=== PATIENT | female | born 1955 | race African-American/Black ===

== ENCOUNTER 2017-07-24 07:25 | Emergency (ER) | payer OTHER ==
[~2017-07-24] VITALS: Ht 162.6 cm; Wt 77.1 kg
[2017-07-24] MEDS ORDERED: IV NORMAL SALINE 1000ML BAG 1,000 ML IV SCH (07:50)
--- NOTE | 2017-07-24 07:56 | PHYS DOC ---
Past Medical History Past Medical History: Hypertension Past Surgical History: , Tonsillectomy, Other Additional Past Surgical Histo: Eye surgery Alcohol Use: None Drug Use: None Adult General Chief Complaint Chief Complaint: DIZZY/LIGHT HEADED HPI HPI Patient is a 62 year old female who presents with 3 days of dizziness. Patient states that she has been having worsening symptoms with standing and with turning her head. Patient states that her symptoms improved when lying still. Patient states that she had similar symptoms last year and was treated for vertigo. Patient also received a brain MRI last year that diagnosed with an incidental finding of brain aneurysm. Patient states that she was treated at for her aneurysm. She states that her doctors did not feel this was associated with her vertigo symptoms. Patient denied rupture of the aneurysm. Patient has had associated nausea but denies headache, shortness of breath, chest pain. Patient has not taken any medications for her symptoms. Review of Systems Review of Systems Constitutional: Denies fever or chills [] Eyes: Denies change in visual acuity, redness, or eye pain [] HENT: Denies nasal congestion or sore throat [] Respiratory: Denies cough or shortness of breath [] Cardiovascular: Denies chest pain or edema[] GI: Nausea, denies abdominal pain, vomiting, bloody stools or diarrhea [] : Denies dysuria or hematuria [] Musculoskeletal: Denies back pain or joint pain [] Integument: Denies rash or skin lesions [] Neurologic: Dizziness, denies headache, focal weakness or sensory changes [] Current Medications Current Medications Current Medications Medications (Trade) Dose Ordered Sig/Emilee Start Time Stop Time Status Last Admin Dose Admin Diazepam (Valium) 5 mg 1X ONCE 07/24/17 08:00 07/24/17 08:02 DC 07/24/17 08:16 5 MG Sodium Chloride 1,000 ml @ 1,000 mls/hr Q1H 07/24/17 07:50 07/24/17 08:49 DC 07/24/17 08:17 1,000 MLS/HR Allergies Allergies Allergies Uncoded Allergies Type Severity Reaction Last Updated Verified ASPERTANE Allergy Intermediate SWELLS UP 12/27/15 Physical Exam Physical Exam Constitutional: Alert, afebrile, appears in mild discomfort. [] HENT: Normocephalic, atraumatic, bilateral external ears normal, oropharynx moist, no oral exudates, nose normal. [] Eyes: PERRLA, EOMI, conjunctiva normal, no discharge. [] Neck: Normal range of motion, no tenderness, supple, no stridor. [] Cardiovascular:Heart rate regular rhythm, no murmur [] Lungs & Thorax: Bilateral breath sounds clear to auscultation [] Abdomen: Bowel sounds normal, soft, no tenderness, no masses, no pulsatile masses. [] Skin: Warm, dry, no erythema, no rash. [] Back: No tenderness, no CVA tenderness. [] Extremities: No tenderness, no cyanosis, no clubbing, ROM intact, no edema. [] Neurologic: Alert and oriented X 3, normal motor function, normal sensory function, no focal deficits noted. [] Current Patient Data Vital Signs Vital Signs Date Time Temp Pulse Resp B/P (MAP) Pulse Ox O2 Delivery O2 Flow Rate FiO2 07/24/17 07:44 98.1 93 14 167/74 (105) 96 Room Air 98.1 Lab Values Laboratory Tests Test 07/24/17 07:41 White Blood Count 4.6 x10^3/uL (4.0-11.0) Red Blood Count 4.96 x10^6/uL (3.50-5.40) Hemoglobin 14.4 g/dL (12.0-15.5) Hematocrit 43.3 % (36.0-47.0) Mean Corpuscular Volume 87 fL (79-100) Mean Corpuscular Hemoglobin 29 pg (25-35) Mean Corpuscular Hemoglobin Concent 33 g/dL (31-37) Red Cell Distribution Width 13.2 % (11.5-14.5) Platelet Count 247 x10^3/uL (140-400) Neutrophils (%) (Auto) 49 % (31-73) Lymphocytes (%) (Auto) 42 % (24-48) Monocytes (%) (Auto) 7 % (0-9) Eosinophils (%) (Auto) 1 % (0-3) Basophils (%) (Auto) 1 % (0-3) Neutrophils # (Auto) 2.3 x10^3uL (1.8-7.7) Lymphocytes # (Auto) 2.0 x10^3/uL (1.0-4.8) Monocytes # (Auto) 0.3 x10^3/uL (0.0-1.1) Eosinophils # (Auto) 0.0 x10^3/uL (0.0-0.7) Basophils # (Auto) 0.0 x10^3/uL (0.0-0.2) Sodium Level 143 mmol/L (136-145) Potassium Level 3.8 mmol/L (3.5-5.1) Chloride Level 105 mmol/L (98-107) Carbon Dioxide Level 30 mmol/L (21-32) Anion Gap 8 (6-14) Blood Urea Nitrogen 17 mg/dL (7-20) Creatinine 0.8 mg/dL (0.6-1.0) Estimated GFR (Cockcroft-Gault) 88.2 BUN/Creatinine Ratio 21 (6-20) H Glucose Level 95 mg/dL (70-99) Calcium Level 9.3 mg/dL (8.5-10.1) Magnesium Level 1.9 mg/dL (1.8-2.4) Total Bilirubin 0.4 mg/dL (0.2-1.0) Aspartate Amino Transferase (AST) 20 U/L (15-37) Alanine Aminotransferase (ALT) 21 U/L (14-59) Alkaline Phosphatase 80 U/L (46-116) Total Protein 7.6 g/dL (6.4-8.2) Albumin 3.7 g/dL (3.4-5.0) Albumin/Globulin Ratio 0.9 (1.0-1.7) L Laboratory Tests 07/24/17 07:41 Laboratory Tests 07/24/17 07:41 EKG EKG Interpreted by me: Heart 72, sinus rhythm, normal intervals, normal axis, no acute ST/T-wave abnormalities present[] Radiology/Procedures Radiology/Procedures [facility] [address] [place] [address] IMAGING REPORT Signed PATIENT: JUAN JADE ACCOUNT: [id number] : 1955 LOCATION: ER AGE: 62 SEX: F EXAM STATUS: PRE ER ORD. PHYSICIAN: MADI GOMEZ MD REASON: dizziness, reported history of brain aneurysm PROCEDURE: CT HEAD WO CONTRAST CT scan of the head without contrast 07/24/2017 Clinical History: Dizziness. Technique: Unenhanced, contiguous, 5 mm axial sections were obtained through the head. One or more of the following individualized dose reduction techniques were utilized for this study: 1. Automated exposure control. 2. Adjustment of the mA and/or kV according to patient size. 3. Use of iterative reconstruction technique. Findings: Comparison study is dated 12/27/2015. There is generalized parenchymal atrophy. Small scattered areas of decreased attenuation are seen within the periventricular and subcortical white matter of both cerebral hemispheres consistent with areas of mild small vessel ischemic disease. No acute parenchymal abnormality is seen. No extra-axial fluid collection is noted. No skull fracture is seen. Impression: No acute intracranial abnormality is seen. DICTATED and SIGNED BY: ALEX ZAPATA MD DATE: 07/24/17813 CC: MADI GOMEZ MD; RO PERRY MD ~ [] Course & Med Decision Making Course & Med Decision Making Pertinent Labs and Imaging studies reviewed. (See chart for details) Patient was given IV fluids and IV Valium in the emergency department. On reevaluation, symptoms have improved. Patient prescribed meclizine for continued treatment of symptoms as outpatient. Recommended follow-up in 2-3 days a primary doctor for reevaluation and return to emergency department for any worsening symptoms. Patient voiced understanding and in agreement with treatment plan. Dragon Disclaimer Dragon Disclaimer This electronic medical record was generated, in whole or in part, using a voice recognition dictation system. Departure Departure Impression: Primary Impression: Vertigo Disposition: 01 HOME, SELF-CARE Condition: IMPROVED Referrals: RO PERRY MD (PCP) Patient Instructions: Vertigo Additional Instructions: Follow-up to primary doctor in 2-3 days for reevaluation. Return to the emergency department for any worsening symptoms. Scripts Meclizine Hcl (MECLIZINE HCL) 25 Mg Tablet 1 TAB PO TID Y for DIZZINESS, #30 TAB Prov: MADI GOMEZ MD 07/24/17 MADI GOMEZ MD Jul 24, 2017 07:56
[2017-07-24 08:11] LABS: BASO % 1 % (0-3); EOS % 1 % (0-3); HEMATOCRIT 43.3 % (36.0-47.0); HEMOGLOBIN 14.4 g/dL (12.0-15.5); LYMPH % 42 % (24-48); MEAN CORPUSCULAR HEMOGLOBIN 29 pg (25-35); MEAN CORPUSCULAR HGB CONC 33 g/dL (31-37); MEAN CORPUSCULAR VOLUME 87 fL (79-100); MONO % 7 % (0-9); NEUT % 49 % (31-73); PLATELET COUNT 247 x10^3/uL (140-400); RED BLOOD COUNT 4.96 x10^6/uL (3.50-5.40); RED CELL DISTRIBUTION WIDTH 13.2 % (11.5-14.5); WHITE BLOOD COUNT 4.6 x10^3/uL (4.0-11.0)
[2017-07-24 08:14] LABS: CALCIUM 9.3 mg/dL (8.5-10.1); CREATININE 0.8 mg/dL (0.6-1.0); GFR 88.2; POTASSIUM 3.8 mmol/L (3.5-5.1)
[2017-07-24 08:20] LABS: ALBUMIN 3.7 g/dL (3.4-5.0); ALBUMIN/GLOBULIN RATIO 0.9 (1.0-1.7); MAGNESIUM 1.9 mg/dL (1.8-2.4); TOTAL BILIRUBIN 0.4 mg/dL (0.2-1.0); TOTAL PROTEIN 7.6 g/dL (6.4-8.2)
--- NOTE | 2017-07-24 08:22 | RAD ---
CT scan of the head without contrast 07/24/2017 Clinical History: Dizziness. Technique: Unenhanced, contiguous, 5 mm axial sections were obtained through the head. One or more of the following individualized dose reduction techniques were utilized for this study: 1. Automated exposure control. 2. Adjustment of the mA and/or kV according to patient size. 3. Use of iterative reconstruction technique. Findings: Comparison study is dated 12/27/2015. There is generalized parenchymal atrophy. Small scattered areas of decreased attenuation are seen within the periventricular and subcortical white matter of both cerebral hemispheres consistent with areas of mild small vessel ischemic disease. No acute parenchymal abnormality is seen. No extra-axial fluid collection is noted. No skull fracture is seen. Impression: No acute intracranial abnormality is seen.
[2017-07-24] MEDS ORDERED: MECL25TA3 PO (08:43)
[2017-07-24 09:13] LABS: BILIRUBIN,URINE NEGATIVE (NEG); GLUCOSE,URINE NEGATIVE (NEG); NITRITE,URINE NEGATIVE (NEG); PROTEIN,URINE NEGATIVE (NEG-TRACE); UROBILINOGEN,URINE 0.2 mg/dL (0.2 mg/dL)
[2017-07-24 09:29] LABS: BACTERIA,URINE FEW /HPF (0-FEW); SQUAMOUS EPITHELIAL CELL,UR FEW /LPF
[2017-07-24 09:30] VITALS: BP 148/74
--- NOTE | 2017-07-24 12:53 | EKG ---
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
== END 2017-07-24 09:58 | disposition home or self-care (01) ==
LOC: ER 07:25
DX: R42 Dizziness and giddiness (principal); R11.0 Nausea; I10 Essential (primary) hypertension; Z88.8 Allergy status to other drugs, medicaments and biological substances
CPT/HCPCS: 36415; 70450; 80053; 81001; 83735; 85025; 87086; 93005; 96361; 96374; 99285; J3360; J7030

== ENCOUNTER 2019-08-29 18:33 | Emergency (ER) | payer OTHER ==
[~2019-08-29] VITALS: Ht 162.6 cm; Wt 78.0 kg
[~2019-08-29 18:33] MED LIST: MECL25TA3 PO
[2019-08-29] MEDS ORDERED: ASPIRIN CHEWABLE 81 MG TABLET. PO ONE (19:00)
[2019-08-29 19:52] LABS: BASO % 1 % (0-3); EOS # 0.1 x10^3/uL (0.0-0.7); EOS % 1 % (0-3); HEMATOCRIT 42.1 % (36.0-47.0); HEMOGLOBIN 14.1 g/dL (12.0-15.5); LYMPH # 1.7 x10^3/uL (1.0-4.8); LYMPH % 22 % (24-48); MEAN CORPUSCULAR HEMOGLOBIN 29 pg (25-35); MEAN CORPUSCULAR HGB CONC 34 g/dL (31-37); MEAN CORPUSCULAR VOLUME 87 fL (79-100); MONO # 0.4 x10^3/uL (0.0-1.1); MONO % 5 % (0-9); NEUT # 5.5 x10^3/uL (1.8-7.7); NEUT % 71 % (31-73); PLATELET COUNT 262 x10^3/uL (140-400); RED BLOOD COUNT 4.86 x10^6/uL (3.50-5.40); RED CELL DISTRIBUTION WIDTH 12.8 % (11.5-14.5); WHITE BLOOD COUNT 7.8 x10^3/uL (4.0-11.0)
[2019-08-29 20:00] LABS: CREATININE 0.7 mg/dL (0.6-1.0); GFR 102.3; POTASSIUM 3.7 mmol/L (3.5-5.1)
[2019-08-29 20:01] LABS: PROTHROMBIN TIME PATIENT 12.2 SEC (11.7-14.0)
[2019-08-29 20:06] LABS: ALBUMIN 3.7 g/dL (3.4-5.0); ALBUMIN/GLOBULIN RATIO 0.9 (1.0-1.7); TOTAL BILIRUBIN 0.3 mg/dL (0.2-1.0); TOTAL PROTEIN 7.7 g/dL (6.4-8.2)
--- NOTE | 2019-08-29 20:15 | PHYS DOC ---
Past Medical History Past Medical History: Hypertension Past Surgical History: , Tonsillectomy, Other Additional Past Surgical Histo: Eye surgery Alcohol Use: None Drug Use: None Adult General Chief Complaint Chief Complaint: CHEST PAIN HPI HPI Patient is a 64 year old female presents to the due to chief complaint of chest pain. Patient states that the pain started around 4 PM today. Patient describes the pain in her epigastric region and states that it feels like heartburn. Patient states that she's never had a cardiac workup previously. Patient denies radiation of her chest pain. Patient does say that she has nausea but no vomiting and no shortness of breath and now sweating. Review of Systems Review of Systems Constitutional: Denies fever or chills [] Eyes: Denies change in visual acuity, redness, or eye pain [] HENT: Denies nasal congestion or sore throat [] Respiratory: Denies cough or shortness of breath [] Cardiovascular: Complains of chest pain[] GI: Denies abdominal pain, nausea, vomiting, bloody stools or diarrhea [] : Denies dysuria or hematuria [] Musculoskeletal: Denies back pain or joint pain [] Integument: Denies rash or skin lesions [] Neurologic: Denies headache, focal weakness or sensory changes [] All other systems were reviewed and found to be within normal limits, except as documented in this note. Current Medications Current Medications Current Medications Medications (Trade) Dose Ordered Sig/[facility] Start Time Stop Time Status Last Admin Dose Admin Aspirin (Children'S Aspirin) 324 mg 1X ONCE 08/29/19 19:00 08/29/19 19:01 DC 08/29/19 19:44 324 MG Multi-Ingredient Mouthwash/Gargle (Gi Cocktail) 20 ml 1X ONCE 08/29/19 20:30 08/29/19 20:31 DC 08/29/19 20:30 20 ML Allergies Allergies Allergies Coded Allergies Type Severity Reaction Last Updated Verified aspartame Allergy Intermediate SWELLS UP 08/29/19 Yes Physical Exam Physical Exam Constitutional: Well developed, well nourished, no acute distress, non-toxic appearance. [] HENT: Normocephalic, atraumatic [] Neck: Normal range of motion, no tenderness, supple, no stridor. [] Cardiovascular:Heart rate regular rhythm, no murmur [] Lungs & Thorax: Bilateral breath sounds clear to auscultation [] Abdomen: Bowel sounds normal, soft, no tenderness [] Back: No tenderness, no CVA tenderness. [] Extremities: No tenderness, no cyanosis, no clubbing, ROM intact[] Neurologic: Alert and oriented X 3, normal motor function, normal sensory function, no focal deficits noted. [] Current Patient Data Vital Signs Vital Signs Date Time Temp Pulse Resp B/P (MAP) Pulse Ox O2 Delivery O2 Flow Rate FiO2 08/29/19 21:15 80 16 149/77 (101) 96 Room Air 08/29/19 18:45 98.4 98.4 Lab Values Laboratory Tests Test 08/29/19 19:40 White Blood Count 7.8 x10^3/uL (4.0-11.0) Red Blood Count 4.86 x10^6/uL (3.50-5.40) Hemoglobin 14.1 g/dL (12.0-15.5) Hematocrit 42.1 % (36.0-47.0) Mean Corpuscular Volume 87 fL (79-100) Mean Corpuscular Hemoglobin 29 pg (25-35) Mean Corpuscular Hemoglobin Concent 34 g/dL (31-37) Red Cell Distribution Width 12.8 % (11.5-14.5) Platelet Count 262 x10^3/uL (140-400) Neutrophils (%) (Auto) 71 % (31-73) Lymphocytes (%) (Auto) 22 % (24-48) L Monocytes (%) (Auto) 5 % (0-9) Eosinophils (%) (Auto) 1 % (0-3) Basophils (%) (Auto) 1 % (0-3) Neutrophils # (Auto) 5.5 x10^3/uL (1.8-7.7) Lymphocytes # (Auto) 1.7 x10^3/uL (1.0-4.8) Monocytes # (Auto) 0.4 x10^3/uL (0.0-1.1) Eosinophils # (Auto) 0.1 x10^3/uL (0.0-0.7) Basophils # (Auto) 0.0 x10^3/uL (0.0-0.2) Prothrombin Time 12.2 SEC (11.7-14.0) Prothrombin Time INR 0.9 (0.8-1.1) Sodium Level 143 mmol/L (136-145) Potassium Level 3.7 mmol/L (3.5-5.1) Chloride Level 106 mmol/L (98-107) Carbon Dioxide Level 31 mmol/L (21-32) Anion Gap 6 (6-14) Blood Urea Nitrogen 15 mg/dL (7-20) Creatinine 0.7 mg/dL (0.6-1.0) Estimated GFR (Cockcroft-Gault) 102.3 BUN/Creatinine Ratio 21 (6-20) H Glucose Level 96 mg/dL (70-99) Calcium Level 9.0 mg/dL (8.5-10.1) Total Bilirubin 0.3 mg/dL (0.2-1.0) Aspartate Amino Transferase (AST) 19 U/L (15-37) Alanine Aminotransferase (ALT) 15 U/L (14-59) Alkaline Phosphatase 75 U/L (46-116) Troponin I Quantitative < 0.017 ng/mL (0.000-0.055) FF-Brs-Q-Type Natriuretic Peptide 39 pg/mL (0-124) Total Protein 7.7 g/dL (6.4-8.2) Albumin 3.7 g/dL (3.4-5.0) Albumin/Globulin Ratio 0.9 (1.0-1.7) L Lipase 108 U/L (73-393) Laboratory Tests 08/29/19 19:40 Laboratory Tests 08/29/19 19:40 EKG EKG EKG injury of dictation: HR: 90 Sinus rhythm Regular intervals Normal axis Nonspecific ST changes No STEMI Radiology/Procedures Radiology/Procedures Ordered chest x-ray Impressions: X-ray does not show any acute disease. Course & Med Decision Making Course & Med Decision Making Pertinent Labs and Imaging studies reviewed. (See chart for details) EKG does not show any acute disease. Troponin is within normal limits. Labs are within normal limits. Patient was given aspirin in the ED. Ordered GI cocktail. Patient states that she is feeling much better after the GI cocktail. Offered admission to patient for stress test the patient says that she will have a stress test as an outpatient. Patient wants to be discharged home. Discussed results and plan of care patient and family. Discussed results and plan of care with patient. Patient is instructed to follow up with PCP in one to 2 days. Appropriate discharge instructions given to patient to return to the ED or to seek immediate medical evaluation. Patient is instructed to return to the ED if symptoms worsen or if any concerns. Pamela Disclaimer Pamela Disclaimer This electronic medical record was generated, in whole or in part, using a voice recognition dictation system. Departure Departure Impression: Primary Impression: Chest pain Additional Impressions: GERD (gastroesophageal reflux disease) Gastritis Disposition: HOME, SELF-CARE Condition: IMPROVED Referrals: JUDY POSADA DO (PCP) Patient Instructions: Chest Pain (Nonspecific), Gastritis, Adult, Peptic Ulcer Disease Additional Instructions: Discussed results and plan of care with patient. Patient is instructed to follow up with PCP in one to 2 days. Appropriate discharge instructions given to patient to return to the ED or to seek immediate medical evaluation. Patient is instructed to return to the ED if symptoms worsen or if any concerns. Scripts Sucralfate (CARAFATE) 1 Gm Tablet 1 TAB PO BID for 30 Days, #60 TAB 0 Refills Prov: ANDRES ZARATE DO 08/29/19 Famotidine (PEPCID) 20 Mg Tablet 20 MG PO BID, #60 TAB Prov: ANDRES ZARATE DO 08/29/19 Problem Qualifiers ANDRES ZARATE DO Aug 29, 2019 20:15
[2019-08-29] MEDS ORDERED: LIDO:MAALOX 1:1 20 ML SINGLE DOSE. SWSW ONE (20:30)
--- NOTE | 2019-08-29 20:38 | RAD ---
EXAM: CHEST 2 VIEWS. HISTORY: Chest pain. COMPARISON: 12/27/2015. FINDINGS: Frontal and lateral views of the chest are obtained. There are no confluent infiltrates. There is no pneumothorax or pleural effusion. The heart is not enlarged. There are atherosclerotic calcifications of the aorta. IMPRESSION: 1. No confluent infiltrates. Electronically signed by: Chapin Krishnamurthy MD (08/29/2019 8:36 PM) [facility]
[2019-08-29 21:15] VITALS: BP 149/77
[2019-08-29] MEDS ORDERED: FAMO-63 PO (21:20)
[2019-08-29] MEDS ORDERED: SUCR1TAB35 PO (21:20)
--- NOTE | 2019-08-30 08:02 | EKG ---
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
== END 2019-08-29 21:30 | disposition home or self-care (01) ==
LOC: ER 18:33
DX: K21.9 Gastro-esophageal reflux disease without esophagitis (principal); K29.70 Gastritis, unspecified, without bleeding; R07.89 Other chest pain; I10 Essential (primary) hypertension; Z98.890 Other specified postprocedural states; Z88.8 Allergy status to other drugs, medicaments and biological substances
CPT/HCPCS: 36415; 71046; 80053; 83690; 83880; 84484; 85025; 85610; 93005; 99285-25

== ENCOUNTER 2019-10-19 11:35 | Emergency (ER) | payer OTHER ==
[~2019-10-19] VITALS: Ht 162.6 cm; Wt 77.1 kg
[~2019-10-19 11:35] MED LIST changes: +FAMO-63 PO; +SUCR1TAB35 PO
--- NOTE | 2019-10-19 12:52 | RAD ---
PORTABLE CHEST 1V Clinical indications: Generalized weakness. COMPARISON: August 02, 2019. Findings: No acute lung infiltrate or pleural effusion or pulmonary edema or lung mass or pneumothorax is seen. The heart size, pulmonary vasculature, mediastinum and both nidia are stable. Impression: No acute radiographic abnormality is seen. Electronically signed by: Jani Mcgee MD (10/19/2019 12:49 PM) [facility]
[2019-10-19 13:01] LABS: BASO % 1 % (0-3); EOS # 0.1 x10^3/uL (0.0-0.7); EOS % 2 % (0-3); HEMATOCRIT 39.4 % (36.0-47.0); HEMOGLOBIN 13.1 g/dL (12.0-15.5); LYMPH # 2.3 x10^3/uL (1.0-4.8); LYMPH % 39 % (24-48); MEAN CORPUSCULAR HEMOGLOBIN 29 pg (25-35); MEAN CORPUSCULAR HGB CONC 33 g/dL (31-37); MEAN CORPUSCULAR VOLUME 87 fL (79-100); MONO # 0.4 x10^3/uL (0.0-1.1); MONO % 7 % (0-9); NEUT # 3.1 x10^3/uL (1.8-7.7); NEUT % 52 % (31-73); PLATELET COUNT 268 x10^3/uL (140-400); RED BLOOD COUNT 4.52 x10^6/uL (3.50-5.40); RED CELL DISTRIBUTION WIDTH 12.9 % (11.5-14.5); WHITE BLOOD COUNT 5.9 x10^3/uL (4.0-11.0)
[2019-10-19 13:03] LABS: BILIRUBIN,URINE NEGATIVE (NEG); CLARITY,URINE CLEAR; COLOR,URINE YELLOW; NITRITE,URINE NEGATIVE (NEG); PROTEIN,URINE NEGATIVE (NEG-TRACE); UROBILINOGEN,URINE 0.2 mg/dL (0.2 mg/dL)
--- NOTE | 2019-10-19 13:06 | RAD ---
STUDY: CT head without contrast INDICATION: Generalized weakness. COMPARISON: 07/24/2017 TECHNIQUE: Axial CT imaging through the head without the use of intravenous contrast. Sagittal and coronal reformats were obtained. One or more of the following individualized dose reduction techniques were utilized for this examination: 1. Automated exposure control 2. Adjustment of the mA and/or kV according to patient size 3. Use of iterative reconstruction technique. FINDINGS: No acute intracranial hemorrhage. No mass effect, midline shift or hydrocephalus. Cain-white matter differentiation is maintained. A stent device is seen at the left intracranial internal carotid artery. Vascular calcifications at the right carotid siphon. Unremarkable visualized paranasal sinuses and mastoid air cells. Unremarkable calvarium and orbits. IMPRESSION: No acute intracranial abnormality seen by CT. Electronically signed by: MANGO COLLINS MD (10/19/2019 1:03 PM) [id number]
[2019-10-19 13:13] LABS: CALCIUM 9.1 mg/dL (8.5-10.1); GFR 67.8; POTASSIUM 3.3 mmol/L (3.5-5.1)
[2019-10-19 13:14] LABS: PROTHROMBIN TIME PATIENT 12.9 SEC (11.7-14.0)
[2019-10-19 13:18] LABS: ALBUMIN 3.8 g/dL (3.4-5.0); MAGNESIUM 2.1 mg/dL (1.8-2.4); TOTAL BILIRUBIN 0.3 mg/dL (0.2-1.0); TOTAL PROTEIN 7.5 g/dL (6.4-8.2)
[2019-10-19 13:35] LABS: BACTERIA,URINE FEW /HPF (0-FEW); RBC,URINE RARE /HPF (0-2); SQUAMOUS EPITHELIAL CELL,UR OCC /LPF; WBC,URINE OCC /HPF (0-4)
[2019-10-19] MEDS ORDERED: HYDR25TA PO (14:06)
--- NOTE | 2019-10-19 14:06 | PHYS DOC ---
Past Medical History Past Medical History: Hypertension Past Surgical History: , Tonsillectomy, Other Additional Past Surgical Histo: Eye surgery Alcohol Use: Occasionally Drug Use: None Adult General Chief Complaint Chief Complaint: WEAKNESS/GENERALIZED HPI HPI Patient is a 64 year old patient with history of hypertension who presents with complaining of generalized weakness. Patient states she has had history of hypertension and episodes of edema and allergic reaction in different areas of her body and her medication was changed from lisinopril to Norvasc with continuing episodes of edema and doesn't started on hydrochlorothiazide. 2 weeks ago. Patient complaining of continued to have episodes of edema at this change of medication and taking Benadryl frequently. Patient complaining of generalized weakness and not having dinner she for the last 2 weeks without focal neuro de ficit, headache, nausea and vomiting, fever and chills, chest pain, shortness of breath, diarrhea and constipation, urinary symptom. Review of Systems Review of Systems Constitutional: Denies fever or chills [] Eyes: Denies change in visual acuity, redness, or eye pain [] HENT: Denies nasal congestion or sore throat [] Respiratory: Denies cough or shortness of breath [] Cardiovascular: No additional information not addressed in HPI [] GI: Denies abdominal pain, nausea, vomiting, bloody stools or diarrhea [] : Denies dysuria or hematuria [] Musculoskeletal: Denies back pain or joint pain [] Integument: Denies rash or skin lesions [] Neurologic: Denies headache, focal weakness or sensory changes [] Endocrine: Denies polyuria or polydipsia [] All other systems were reviewed and found to be within normal limits, except as documented in this note. Allergies Allergies Allergies Coded Allergies Type Severity Reaction Last Updated Verified amlodipine Allergy Severe Swelling 10/19/19 Yes lisinopril Allergy Severe Swelling 10/19/19 Yes aspartame Allergy Intermediate SWELLS UP 08/29/19 Yes Physical Exam Physical Exam Constitutional: Well developed, well nourished, no acute distress, non-toxic a ppearance. [] HENT: Normocephalic, atraumatic, bilateral external ears normal, oropharynx moist, no oral exudates, nose normal. [] Eyes: PERRLA, EOMI, conjunctiva normal, no discharge. [] Neck: Normal range of motion, no tenderness, supple, no stridor. [] Cardiovascular:Heart rate regular rhythm, no murmur [] Lungs & Thorax: Bilateral breath sounds clear to auscultation [] Abdomen: Bowel sounds normal, soft, no tenderness, no masses, no pulsatile masses. [] Skin: Warm, dry, no erythema, no rash. [] Back: No tenderness, no CVA tenderness. [] Extremities: No tenderness, no cyanosis, no clubbing, ROM intact, no edema. [] Neurologic: Alert and oriented X 3, normal motor function, normal sensory function, no focal deficits noted. [] Psychologic: Affect normal, judgement normal, mood normal. [] Current Patient Data Vital Signs Vital Signs Date Time Temp Pulse Resp B/P (MAP) Pulse Ox O2 Delivery O2 Flow Rate FiO2 10/19/19 14:09 80 16 140/79 (99) 97 Room Air 10/19/19 12:05 98.1 98.1 Lab Values Laboratory Tests Test 10/19/19 12:33 10/19/19 12:40 Urine Collection Type Unknown Urine Color Yellow Urine Clarity Clear Urine pH 6.0 Urine Specific [place] <=1.005 Urine Protein Negative mg/dL (NEG-TRACE) Urine Glucose (UA) Negative mg/dL (NEG) Urine Ketones (Stick) Negative mg/dL (NEG) Urine Blood Small (NEG) Urine Nitrite Negative (NEG) Urine Bilirubin Negative (NEG) Urine Urobilinogen Dipstick 0.2 mg/dL (0.2 mg/dL) Urine Leukocyte Esterase Trace (NEG) Urine RBC Rare /HPF (0-2) Urine WBC Occ /HPF (0-4) Urine Squamous Epithelial Cells Occ /LPF Urine Bacteria Few /HPF (0-FEW) White Blood Count 5.9 x10^3/uL (4.0-11.0) Red Blood Count 4.52 x10^6/uL (3.50-5.40) Hemoglobin 13.1 g/dL (12.0-15.5) Hematocrit 39.4 % (36.0-47.0) Mean Corpuscular Volume 87 fL (79-100) Mean Corpuscular Hemoglobin 29 pg (25-35) Mean Corpuscular Hemoglobin Concent 33 g/dL (31-37) Red Cell Distribution Width 12.9 % (11.5-14.5) Platelet Count 268 x10^3/uL (140-400) Neutrophils (%) (Auto) 52 % (31-73) Lymphocytes (%) (Auto) 39 % (24-48) Monocytes (%) (Auto) 7 % (0-9) Eosinophils (%) (Auto) 2 % (0-3) Basophils (%) (Auto) 1 % (0-3) Neutrophils # (Auto) 3.1 x10^3/uL (1.8-7.7) Lymphocytes # (Auto) 2.3 x10^3/uL (1.0-4.8) Monocytes # (Auto) 0.4 x10^3/uL (0.0-1.1) Eosinophils # (Auto) 0.1 x10^3/uL (0.0-0.7) Basophils # (Auto) 0.0 x10^3/uL (0.0-0.2) Prothrombin Time 12.9 SEC (11.7-14.0) Prothrombin Time INR 1.0 (0.8-1.1) Sodium Level 143 mmol/L (136-145) Potassium Level 3.3 mmol/L (3.5-5.1) L Chloride Level 101 mmol/L (98-107) Carbon Dioxide Level 35 mmol/L (21-32) H Anion Gap 7 (6-14) Blood Urea Nitrogen 13 mg/dL (7-20) Creatinine 1.0 mg/dL (0.6-1.0) Estimated GFR (Cockcroft-Gault) 67.8 BUN/Creatinine Ratio 13 (6-20) Glucose Level 84 mg/dL (70-99) Lactic Acid Level 1.1 mmol/L (0.4-2.0) Calcium Level 9.1 mg/dL (8.5-10.1) Magnesium Level 2.1 mg/dL (1.8-2.4) Total Bilirubin 0.3 mg/dL (0.2-1.0) Aspartate Amino Transferase (AST) 20 U/L (15-37) Alanine Aminotransferase (ALT) 15 U/L (14-59) Alkaline Phosphatase 84 U/L (46-116) Creatine Kinase 134 U/L (26-192) Troponin I Quantitative < 0.017 ng/mL (0.000-0.055) PK-Yvl-A-Type Natriuretic Peptide 45 pg/mL (0-124) Total Protein 7.5 g/dL (6.4-8.2) Albumin 3.8 g/dL (3.4-5.0) Albumin/Globulin Ratio 1.0 (1.0-1.7) Thyroid Stimulating Hormone (TSH) 1.830 uIU/mL (0.358-3.74) Laboratory Tests 10/19/19 12:40 Laboratory Tests 10/19/19 12:40 EKG EKG EKG interpreted by me. EKG at 1207 showed normal sinus rhythm at rate of 74, left mcmillan axis, normal WI and QT intervals, no acute ST and T-wave elevation. Radiology/Procedures Radiology/Procedures [place] [phone] IMAGING REPORT Signed PATIENT: JUAN JADE ACCOUNT: [id number] : 1955 LOCATION: ER AGE: 64 SEX: F EXAM STATUS: REG ER ORD. PHYSICIAN: ASRAH LOPES MD REASON: generalized weakness PROCEDURE: PORTABLE CHEST 1V PORTABLE CHEST 1V Clinical indications: Generalized weakness. COMPARISON: August 02, 2019. Findings: No acute lung infiltrate or pleural effusion or pulmonary edema or lung mass or pneumothorax is seen. The heart size, pulmonary vasculature, mediastinum and both nidia are stable. Impression: No acute radiographic abnormality is seen. Electronically signed by: Victorino Mcgee MD (10/19/2019 12:49 PM) [facility] DICTATED and SIGNED BY: VICTORINO MCGEE MD DATE: 10/19/[address] [id number] IMAGING REPORT Signed PATIENT: JUAN JADE ACCOUNT: [id number] : 1955 LOCATION: ER AGE: 64 SEX: F EXAM STATUS: REG ER ORD. PHYSICIAN: SARAH LOPES MD REASON: generalized weakness PROCEDURE: CT HEAD WO CONTRAST STUDY: CT head without contrast INDICATION: Generalized weakness. COMPARISON: 07/24/2017 TECHNIQUE: Axial CT imaging through the head without the use of intravenous contrast. Sagittal and coronal reformats were obtained. One or more of the following individualized dose reduction techniques were utilized for this examination: 1. Automated exposure control 2. Adjustment of the mA and/or kV according to patient size 3. Use of iterative reconstruction technique. FINDINGS: No acute intracranial hemorrhage. No mass effect, midline shift or hydrocephalus. Cain-white matter differentiation is maintained. A stent device is seen at the left intracranial internal carotid artery. Vascular calcifications at the right carotid siphon. Unremarkable visualized paranasal sinuses and mastoid air cells. Unremarkable calvarium and orbits. IMPRESSION: No acute intracranial abnormality seen by CT. Electronically signed by: MANGO COLLINS MD (10/19/2019 1:03 PM) [id number] DICTATED and SIGNED BY: MANGO COLLINS MD DATE: 10/19/19 1303 Course & Med Decision Making Course & Med Decision Making Pertinent Labs and Imaging studies reviewed. (See chart for details) Evaluation of patient in ER showed 64-year-old male patient with episodes of generalized weakness and dizziness for the last 2 weeks after starting on hydr ochlorothiazide. Patient had unremarkable physical exam and CT head and chest x- ray and labs and was advised to stop taking Benadryl and prescription for hydroxyzine was given. Patient was advised to follow up with tool and die assembler specialist regarding episodes of edema. I've spoken with the patient and/or caregivers. I've explained the patient's condition, diagnosis and treatment plan based on information available to me at this time. I've answered the patient's and/or caregivers questions and addressed any concerns. The patient and/or caregivers have a good understanding the allison ent's diagnosis, condition and treatment plan as can be expected at this point. Vital signs have been stabilized. The patient's condition is stable for discharge from the emergency department. The patient will pursue further outpatient evaluation with her primary care provider or other designated consulting physician as outlined in the discharge instructions. Patient and/or caregivers are agreeable to this plan of care and follow-up instructions have been explained in detail. The patient and/or caregivers have received these instructions in written format and expressed understanding of these discharge instructions. The patient and her caregivers are aware that if any significant change in condition or worsening of symptoms should prompt him to immediately return to this of the closest emergency department. If an emergent department is not readily available I would encourage him to call 911. [place] Disclaimer Dragon Disclaimer This electronic medical record was generated, in whole or in part, using a voice recognition dictation system. Departure Departure Impression: Primary Impression: Generalized weakness Additional Impressions: Allergic reaction Hypokalemia Disposition: HOME, SELF-CARE (at 1404) Condition: STABLE Referrals: JUDY POSADA DO (PCP) Patient Instructions: Hypokalemia, Weakness Additional Instructions: Stop taking [id number] Benadryl Follow-up with your primary care physician in 3-5 days Return to ER if not getting better Follow-up with home health specialist Thank you for visiting [facility]. We appreciate you trusting us with your care. If any additional problems come up don't hesitate to return to visit us. Please follow up with your primary care provider so they can plan additional care if needed and know about the problem that you had. If symptoms worsen come back to the Emergency Department. Any concerning symptoms that start such as chest pain, shortness of air, weakness or numbness on one side of the body, running high fevers or any other concerning symptoms return to the ER. Scripts Hydroxyzine Hcl (HYDROXYZINE HCL) 25 Mg Tablet 1 TAB PO TID PRN for ITCHING, #30 TAB Prov: SARAH LOPES MD 10/19/19 Problem Qualifiers Additional Impressions: Allergic reaction Encounter type: sequela Qualified Codes: T78.40XS - Allergy, unspecified, sequela SARAH LOPES MD Oct 19, 2019 14:06
[2019-10-19 14:09] VITALS: BP 140/79
--- NOTE | 2019-10-22 07:11 | EKG ---
[facility] [address] [place] [address] Test Date: 2019-10-19 Test Time: 12:07:45 Pat Name: JUAN JADE Department: Room: Gender: F Practicing Md Anesthesiologist: : 1955 Requested By: SARAH LOPES Order Number: [id number] Reading MD: Measurements Intervals [place] Rate: 74 P: -14 ND: 188 QRS: -4 QRSD: 74 T: 27 QT: 384 QTc: 427 Interpretive Statements SINUS RHYTHM LEFTWARD AXIS NO SPECIFIC ECG ABNORMALITIES RI6.01 No previous ECG available for comparison
== END 2019-10-19 14:17 | disposition home or self-care (01) ==
LOC: ER 11:35
DX: R53.1 Weakness (principal); T78.40XA Allergy, unspecified, initial encounter; E87.6 Hypokalemia; I10 Essential (primary) hypertension; Z88.8 Allergy status to other drugs, medicaments and biological substances
CPT/HCPCS: 36415; 70450; 71045; 80053; 81001; 82550; 83605; 83735; 83880; 84443; 84484; 85025; 85610; 87086; 93005; 99285-25